=== PATIENT | male | born 2000 | race African-American/Black ===

== ENCOUNTER 2021-06-14 02:52 | Emergency (ER) | payer BC ==
[~2021-06-14] VITALS: Ht 182.9 cm; Wt 61.2 kg
--- NOTE | ~2021-06-14 | EMS ---
[facility] [address] [place] [address] EMS Patient Care Report Name: CARLYLE CABRERA Room #: DEP CALEB Walsh#: [id number] Admission: 06/14/21 Attend Phys: Discharge: 06/14/21 Date of : 00 Report #: [id number] THIS REPORT FOR: //name// Report Transmitted: 06/16/2021 09:53 EMS Care Summary [place], [place]/[facility] Incident [id number] @ 06/14/2021 02:07 Incident Location [address] [place] [address] [address] [place] [address] Patient CARLYLE ROJAS Male, 20 Years 2000 Patient Address [id number] [place] [address] Patient History Insomnia, Patient Allergies No known allergies, Patient Medications None Reported, Chief Complaint OVERDOSE AFTER USING PERCOCET Disposition Transported No Lights/[place] Dispatch Reason Unconscious/Fainting Transported To [facility] Narrative M41 DISPATCHED TO AN UNCONSCIOUS WITH P42. M41 AOS AND FOUND A MALE PT WITH P42. P42 STATES THAT ON THEIR ARRIVAL THEY [facility] [address] [place] [address] EMS Patient Care Report Name: CARLYLE CABRERA Room #: DEP CALEB Walsh#: [id number] Admission: 06/14/21 Attend Phys: Discharge: 06/14/21 Date of : 00 Report #: [id number] NOTICED THAT THE PT WAS SLUMPED DOWN OFF THE BED. THE PTS GIRLFRIEND CALLED AFTER HE PASSED OUT AFTER A PERCOCET. THE PT WAS BREATHING SHALLOW AND PINPOINT PUPILS WERE NOTED. IV ACCESS GAINED ON THE PT AND THE PT WAS GIVEN 0.5MG NARCAN IV. THE PT REGAINED CONSCIOUSNESS. PT IS AOX4 AT THIS TIME AND IS CALM AND COOPERATIVE. PT DENIES HAVING ANY COMPLAINTS RIGHT NOW. THE PT STATES THAT HE DID SMOKE SOME WEED TONIGHT WELL. PT WAS ABLE TO WALK TO THE AMBULANCE. VITALS OBTIANED. BGA OBTAINED. 4 LEAD OBTAINED. M[address] [place]. EN ROUTE PT REMAINED STABLE. REPORT GIVEN TO CAMI PURDY. SIGNATURES OBTAINED. TRANSFER OF CARE TOOK PLACE. M41 IN SERVICE. [employer] Initial Vitals @02:33P: 105,R: 18,BP: 137/86,Pain: 0/10,GCS: 15,Glucose: 173,SpO2: 96,Revised Trauma: 12, @02:42P: 90,R: 18,BP: 136/72,Pain: 0/10,GCS: 15,CO: 0,SpO2: 96,Revised Trauma: 12, Assessments @02:42MENTAL:Time Oriented,Person Oriented,Place Oriented,Event Oriented,SKIN:HEENT:Head/Face: No Abnormalities,Neck/Airway: No Abnormalities,LUNG SOUNDS:General: No Abnormalities,ABDOMEN:General: No Abnormalities,PELVIS//GI:No Abnormalities,EXTREMITIES:Capillary Refill: Right Upper: < 2 Sec,Left Arm: No Abnormalities,Right Arm: No Abnormalities,Left Leg: No Abnormalities,Right Leg: No Abnormalities,PULSE:Radial: 2+ Normal,NEURO:No Abnormalities, Impression Overdose - Other opioids Procedures @02:38 ALS Assessment Response: UnchangedSucceeded @02:38 3-Lead ECG Response: UnchangedSucceeded @PTAIV Therapy - Saline Lock 10cc (18 ga) Site: Antecubital-Left Response: UnchangedSucceeded @PTANarcan - 0.5 Milligrams (mg) - Intravenous (IV) Response: Improved [facility] [address] [place] [address] EMS Patient Care Report Name: CARLYLE CABRERA [id number] Admission: 06/14/21 Attend Phys: Discharge: 06/14/21 Date of : 00 Report #: [id number] Timeline LOG RAFTER,IV Therapy - Saline Lock 10cc 18 ga Site: Antecubital-Left,Response: UnchangedSucceeded, LOG RAFTER,Narcan - 0.5 Milligrams (mg) - Intravenous (IV),Response: Improved 02:03,Dispatch Notified 02:07,Call Received 02:07,Dispatched 02:09,En Route 02:21,On Scene 02:24,At Patient 02:33,BP: 137/86 M,PULSE: 105,RR: 18 R,SPO2: 96 Ox,ETCO2: ,B,PAIN: 0,GCS: 15, 02:37,Depart Scene 02:38,ALS Assessment,Response: UnchangedSucceeded, 02:38,3-Lead ECG,Response: UnchangedSucceeded, 02:42,BP: 136/72 M,PULSE: 90,RR: 18 R,SPO2: 96 Ox,ETCO2: ,BG: ,PAIN: 0,GCS: 15, 02:50,At Destination 03:04,Call Closed Disclaimer v1.1 Copyright 2020 Prepared Response This EMS Care Summary contains data elements from the applicable legal record (which may be displayed differently). It is designed to provide pertinent information for the following purposes: continuity of care, clinical quality, and state data reporting. The complete legal record is available to ED staff and administrators of the receiving hospital in [employer]'s Patient Tracker. All data is provided "as is."
[2021-06-14] MEDS ORDERED: NARCAN4 MG NARES (03:18)
[2021-06-14 04:36] VITALS: BP 119/74
--- NOTE | 2021-06-16 07:34 | EKG ---
[place] [address] [address] [facility] [place] [address] ELECTROCARDIOGRAM REPORT Name: CARLYLE CABRERA NIKKI Room #: [facility] [id number] Admission: 06/14/21 Attend Phys: Discharge: 06/14/21 Date of : 00 Report #: [id number] [facility] ED Test Date: 2021-06-14 Test Time: 02:56:56 Pat Name: CARLYLE CARLISLE Department: Room: Gender: M Hand Surgeon: : 2000 Requested By: Chun Hidalgo Order Number: [id number] MD: Arley Mercedes Measurements Intervals [place] Rate: 80 P: 62 MO: 187 QRS: 34 QRSD: 76 T: 43 QT: 355 QTc: 410 Interpretive Statements Sinus rhythm ST elev, probable normal early repol pattern No previous ECG available for comparison Electronically Signed On 06-16-2021 7:34:06 HRIS MANAGER by Arley Mercedes [email or web address] <ELECTRONICALLY SIGNED> By: Arley Mercedes MD, [facility] 06/16/21 0734 [id number] Arley Mercedes MD, FACC /EPI
== END 2021-06-14 04:15 | disposition home or self-care (01) ==
LOC: ER 02:52
DX: T40.2X1A Poisoning by other opioids, accidental (unintentional), initial encounter (principal); Y92.89 Other specified places as the place of occurrence of the external cause